=== PATIENT | female | born 1975 | race American Indian/Alaskan Native ===

== ENCOUNTER 2020-02-14 18:11 | Emergency (ER) | payer SELFPAY ==
[2020-02-14 18:17] VITALS: BP 122/87
--- NOTE | 2020-02-14 19:32 | Emergency Department Report ---
ED General Adult HPI - General Chief complaint: Extremity Problem,Nontraumatic Stated complaint: RT LEG PAIN TO ANKLE Time Seen by Provider: 02/14/20 19:22 Source: patient Mode of arrival: Ambulatory Limitations: No Limitations - History of Present Illness Initial comments: 44-year-old -[place] female smoker who works at a [employer] stand ing for long peers a day and then followed up with with with working at [employer] standing for even longer periods of the day presents emerge department complaining of a 3-week history of not improving lower extremity swelling with no calf pain. The symptoms do improve when she puts her legs up she reports no injury. Reports no numbness, no tingling, no hemoptysis no hematemesis or hematochezia. No fever, chills, sweats no chest pain or palpitations. -: Gradual Consistency: constant Improves with: none Worsens with: none Associated Symptoms: denies other symptoms. denies: cough, diaphoresis, loss of appetite, malaise, nausea/vomiting, rash, shortness of breath, syncope, weakness Treatments Prior to Arrival: none - Related Data Previous Rx's Medication Instructions Recorded Last Taken Type Cyclobenzaprine [Flexeril] 10 mg PO QHS PRN #10 tablet 08/23/18 Unknown Rx Ibuprofen [Motrin] 600 mg PO Q8H PRN #20 tablet 08/23/18 Unknown Rx Compress.stocking,Knee,Reg,Med 1 each MC DAILY #1 each 02/14/20 Unknown Rx [Jobst Ultrasheer] Furosemide [Lasix] 20 mg PO QDAY #7 tablet 02/14/20 Unknown Rx Potassium Chloride [K-Dur] 10 meq PO QDAY #7 tablet 02/14/20 Unknown Rx Allergies Allergy/AdvReac Type Severity Reaction Status Date / Time silver Allergy Unknown Verified 08/23/18 13:06 ED Review of Systems ROS: Stated complaint: RT LEG PAIN TO ANKLE Other details as noted in HPI Comment: All other systems reviewed and negative ED Past Medical Hx - Past Medical History Previous Medical History?: No - Surgical History Past Surgical History?: Yes Additional Surgical History: bilateral feet - Social History Smoking Status: Current Every Day Smoker Substance Use Type: Alcohol, Marijuana - Medications Home Medications: Home Medications Medication Instructions Recorded Confirmed Last Taken Type Cyclobenzaprine [Flexeril] 10 mg PO QHS PRN #10 tablet 08/23/18 Unknown Rx Ibuprofen [Motrin] 600 mg PO Q8H PRN #20 tablet 08/23/18 Unknown Rx Compress.stocking,Knee,Reg,Med 1 each MC DAILY #1 each 02/14/20 Unknown Rx [Jobst Ultrasheer] Furosemide [Lasix] 20 mg PO QDAY #7 tablet 02/14/20 Unknown Rx Potassium Chloride [K-Dur] 10 meq PO QDAY #7 tablet 02/14/20 Unknown Rx ED Physical Exam - General Limitations: No Limitations General appearance: alert, in no apparent distress - Head Head exam: Present: atraumatic, normocephalic - Eye Eye exam: Present: normal appearance, PERRL, EOMI Pupils: Present: normal accommodation - ENT ENT exam: Present: normal exam, mucous membranes moist - Neck Neck exam: Present: normal inspection - Respiratory Respiratory exam: Present: normal lung sounds bilaterally. Absent: respiratory distress, rhonchi, stridor, accessory muscle use, decreased breath sounds - Cardiovascular Cardiovascular Exam: Present: regular rate, normal rhythm. Absent: systolic murmur, diastolic murmur, rubs, gallop - GI/Abdominal GI/Abdominal exam: Present: soft, normal bowel sounds - Extremities Exam Extremities exam: Present: normal inspection, normal capillary refill, pedal edema, other (Pulses 2+. No cellulitis. Normal warmth. Varicosities are noted.). Absent: calf tenderness - Back Exam Back exam: Present: normal inspection. Absent: CVA tenderness (R), CVA tenderness (L) - Neurological Exam Neurological exam: Present: alert, oriented X3, CN II-XII intact - Psychiatric Psychiatric exam: Present: normal affect, normal mood - Skin Skin exam: Present: warm, dry, intact, normal color. Absent: rash ED Course Vital Signs 02/14/20 18:16 Temperature 98.8 F Pulse Rate 71 Respiratory 20 Rate Blood Pressure 122/87 O2 Sat by Pulse 98 Oximetry Critical care attestation.: If time is entered above; I have spent that time in minutes in the direct care of this critically ill patient, excluding procedure time. ED Disposition Clinical Impression: Pedal edema Disposition: DC- TO HOME OR SELFCARE Is pt being admited?: No Does the pt Need Aspirin: No Condition: Stable Instructions: Leg Edema (ED) Prescriptions: Compress.stocking,Knee,Reg,Med [Jobst Ultrasheer] 1 each MC DAILY #1 each Potassium Chloride [K-Dur] 10 meq PO QDAY #7 tablet Furosemide [Lasix] 20 mg PO QDAY #7 tablet Referrals: [facility] [Provider Group] - 3-5 Days
== END 2020-02-14 20:35 | disposition home or self-care (01) ==
LOC: ED 18:11
DX: R60.0 Localized edema (principal); F17.200 Nicotine dependence, unspecified, uncomplicated; F12.90 Cannabis use, unspecified, uncomplicated; Z79.899 Other long term (current) drug therapy; Z91.09 Other allergy status, other than to drugs and biological substances; Z98.890 Other specified postprocedural states
CPT/HCPCS: 99282

== ENCOUNTER 2021-04-01 10:03 | Emergency (ER) | payer SELFPAY ==
[2021-04-01 10:09] VITALS: BP 121/71
--- NOTE | 2021-04-01 10:18 | Emergency Department Report ---
Upper Extremity - HPI Chief Complaint: Extremity Injury, Upper Stated Complaint: LEFT ELBOW PAIN Time Seen by Provider: 04/01/21 10:09 Upper Extremity: Left Elbow Occurred When: 2 Days Other History: Patient is a 45-year-old female presents emergency room complaints of left elbow pain that began 2 days ago. Patient denies any fall or injury. She denies any swelling, rashes, redness, numbness, weakness. She states that she only experiences pain with movement. 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 Patient denies any past medical history. allergy to silver. ED Review of Systems ROS: Stated complaint: LEFT ELBOW PAIN Other details as noted in HPI Comment: All other systems reviewed and negative ED Past Medical Hx - Past Medical History Previous Medical History?: No - Surgical History Past Surgical History?: Yes Additional Surgical History: bilateral feet - Social History Smoking Status: Current Every Day Smoker Substance Use Type: Alcohol, Marijuana - Medications Home Medications: Home Medications Medication Instructions Recorded Confirmed Last Taken Type Cyclobenzaprine [Flexeril] 10 mg PO QHS PRN #10 tablet 08/23/18 Unknown Rx Ibuprofen [Motrin] 600 mg PO Q8H PRN #20 tablet 08/23/18 Unknown Rx Compress.stocking,Knee,Reg,Med 1 each MC DAILY #1 each 02/14/20 Unknown Rx [Jobst Ultrasheer] Furosemide [Lasix] 20 mg PO QDAY #7 tablet 02/14/20 Unknown Rx Potassium Chloride [K-Dur] 10 meq PO QDAY #7 tablet 02/14/20 Unknown Rx Menthol/Camphor [[place] 1 applicatio TP BID #18 oint...g. 04/01/21 Unknown Rx Ointment] Naproxen 375 mg PO BID PRN #20 tablet 04/01/21 Unknown Rx Upper Extremity Exam - Exam General: Vital signs noted. No distress. Alert and acting appropriately. Head and Torso: No HEENT Abnormality, No Neck Tenderness Shoulder Exam: Yes Normal Range of Motion in Shoulder, No Shoulder Tenderness, No Clavicle Tenderness, No Shoulder Deformity, No AC Joint Tenderness Arm Exam: No Arm/Humerus Tenderness, No Arm Deformity Elbow: Yes Elbow Tenderness (ttp to the left posterior elbow overlying the triceps tendon, no edema, no erythema, no increased warmth, no skin changes, no deformity, FROM, neurovascularly intact), Yes Normal Range of Motion in Elbow, No Elbow Deformity Forearm: No Forearm Tenderness, No Forearm Deformity, No Pain with Pronation, No Pain with Supination Wrist: Yes Normal ROM in Wrist, No Wrist Tenderness, No Wrist Deformity, No Snuffbox Tenderness, No Pain with Axial Thumb Compression Hand: Yes Normal ROM in Digit(s), No Hand Tenderness, No Hand Deformity, No Digit Tenderness, No Digit(s) Deformity, No Tendon Dysfunction CMS Exam: Yes Normal Distal Pulses, Yes Normal Capillary Refill, Yes Normal Distal Sensation, No Broken Skin ED Course Vital Signs 04/01/21 10:08 Temperature 98.3 F Pulse Rate 88 Respiratory 20 Rate Blood Pressure 121/71 O2 Sat by Pulse 96 Oximetry ED Medical Decision Making - Medical Decision Making Patient is a 45-year-old female presents emergency room complaints of left elbow pain that began 2 days ago. Patient denies any fall or injury. She denies any swelling, rashes, redness, numbness, weakness. She states that she only experiences pain with movement. 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 Patient denies any past medical history. allergy to silver. Vitals are normal. On exam: ttp to the left posterior elbow overlying the triceps tendon, no edema, no erythema, no increased warmth, no skin changes, no deformity, FROM, neurovascularly intact. Examination appears most consistent with tendinitis. Patient has had no acute trauma, she has full range of motion. No signs of infection or septic joint. [place] wrap applied by tech and patient remained neurovascularly intact. Advised patient Please use medication as prescribed. May use ice pack or heating pad for 15 minutes at a time. Do not use [place] balm while using heat or ice. Do not wear [place] bandage too tightly do not wear at night while sleeping. Follow-up with orthopedic doctor. Return to emergency room for any new or worsening symptoms. Critical care attestation.: If time is entered above; I have spent that time in minutes in the direct care of this critically ill patient, excluding procedure time. ED Disposition Clinical Impression: Left elbow pain Disposition: HOME / SELF CARE / HOMELESS Is pt being admited?: No Does the pt Need Aspirin: No Condition: Stable Instructions: Tendinitis Additional Instructions: Please use medication as prescribed. May use ice pack or heating pad for 15 minutes at a time. Do not use [place] balm while using heat or ice. Do not wear [place] bandage too tightly do not wear at night while sleeping. Follow-up with orthopedic doctor. Return to emergency room for any new or worsening symptoms. Prescriptions: Naproxen 375 mg PO BID PRN #20 tablet PRN Reason: pain Menthol/Camphor [[place] Ointment] 1 applicatio TP BID #18 oint...g. Referrals: SENTHIL WHALEY MD [Staff Physician] - 3-5 Days [facility] [Provider Group] - 3-5 Days Forms: Work/School Release Form(ED) Time of Disposition: 10:17 Print Language: [place]
== END 2021-04-01 10:54 | disposition home or self-care (01) ==
LOC: ED 10:03
DX: M25.522 Pain in left elbow (principal); F17.200 Nicotine dependence, unspecified, uncomplicated; F12.10 Cannabis abuse, uncomplicated
CPT/HCPCS: 99281

== ENCOUNTER 2022-01-17 17:06 | Emergency (ER) | payer SELFPAY | END 2022-01-17 22:00 | disposition left against medical advice (07) | LOC: ED 17:06 | DX: K08.89 Other specified disorders of teeth and supporting structures (principal); Z53.21 Procedure and treatment not carried out due to patient leaving prior to being seen by health care provider ==